=== PATIENT | male | born 1960 | race American Indian/Alaskan Native ===

== ENCOUNTER 2021-06-19 22:31 | Emergency (ER) | payer SELFPAY ==
--- NOTE | 2021-06-19 22:42 | Emergency Department Report ---
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 Patient brought to the emergency room via EMS from home for evaluation of epigastric pain that radiated to his back. Patient stated that pain started yesterday. Patient stated that he has been drinking alcohol for the last few days. Patient denied any fever or chills. No diarrhea. Patient denied any chest pain or shortness of breath. MD Complaint: abdominal pain -: days(s) Location: epigastric Radiation: back Severity scale (0 -10): 8 Quality: sharp Consistency: constant Associated Symptoms: nausea, vomiting - Related Data Allergies Allergy/AdvReac Type Severity Reaction Status Date / Time No Known Allergies Allergy Verified 06/19/21 22:47 ED Review of Systems ROS: Stated complaint: ABD PAIN Other details as noted in HPI Comment: All other systems reviewed and negative Constitutional: denies: chills, fever Respiratory: denies: cough, shortness of breath Cardiovascular: denies: chest pain, palpitations Gastrointestinal: abdominal pain, nausea, vomiting. denies: diarrhea, constipation, hematemesis, melena, hematochezia Musculoskeletal: back pain Neurological: denies: headache, weakness, numbness, paresthesias, confusion ED Physical Exam - General General appearance: alert, in no apparent distress - Head Head exam: Present: atraumatic, normal inspection - Eye Eye exam: Present: normal appearance - ENT ENT exam: Present: mucous membranes dry - Neck Neck exam: Present: normal inspection, full ROM. Absent: tenderness, meningismus - Respiratory Respiratory exam: Present: normal lung sounds bilaterally - Cardiovascular Cardiovascular Exam: Present: regular rate, normal rhythm, normal heart sounds - GI/Abdominal GI/Abdominal exam: Present: soft, tenderness, normal bowel sounds. Absent: distended, guarding, rebound, rigid, organomegaly, mass, bruit, pulsatile mass, hernia - Extremities Exam Extremities exam: Present: normal inspection, full ROM, normal capillary refill. Absent: tenderness, pedal edema, joint swelling, calf tenderness - Back Exam Back exam: Present: normal inspection, full ROM. Absent: CVA tenderness (R), CVA tenderness (L) - Neurological Exam Neurological exam: Present: alert, oriented X3, CN II-XII intact, normal gait, reflexes normal. 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 Patient brought to the emergency room via EMS from home for evaluation of epigastric pain that radiated to his back. Patient stated that pain started yesterday. Patient stated that he has been drinking alcohol for the last few days. Patient denied any fever or chills. No diarrhea. Patient denied any chest pain or shortness of breath. Patient received morphine, Zofran and fluids. Patient stated that he is feeling much better labs reviewed and showed elevated lipase. CT abdomen pelvis showed acute pancreatitis. Patient given prescription for pain and vomiting and advised to follow-up with his primary doctor in the next 2 to 3 days and to return to the ER if he develop any new symptoms. Critical care attestation.: If time is entered above; I have spent that time in minutes in the direct care of this critically ill patient, excluding procedure time. ED Disposition Clinical Impression: Acute abdominal pain, Acute pancreatitis Disposition: 01 HOME / SELF CARE / HOMELESS Is pt being admited?: No Condition: Stable Instructions: Acute Pancreatitis, [id number], Abdominal Pain, Adult, [id number] Referrals: PRIMARY CARE, [Referring] - 3-5 Days
[2021-06-19] MEDS: MORPHINE 4 MG/1 ML INJ IV ONE ×2 (23:01→23:29)
[2021-06-19] MEDS: SODIUM CHLORIDE 0.9% 1000 ML 1,000 ML IV ONE ×2 (23:02→23:29)
[2021-06-19] MEDS: ONDANSETRON 4 MG/2 ML INJ IV ONE ×2 (23:02→23:29)
[2021-06-19 23:22] LABS: Basophils % (Auto) 0.8 % (0.0-1.8); Eosinophils # (Auto) 0.1 K/mm3 (0.0-0.4); Eosinophils % (Auto) 2.2 % (0.0-4.3); Hematocrit 36.1 % (35.5-45.6); Hemoglobin 12.5 gm/dl (11.8-15.2); Lymphocytes # (Auto) 1.6 K/mm3 (1.2-5.4); Lymphocytes % (Auto) 39.5 % (13.4-35.0); Mean Corpuscular HGB Conc 35 % (32-34); Mean Corpuscular Volume 97 fl (84-94); Monocytes # (Auto) 0.4 K/mm3 (0.0-0.8); Monocytes % (Auto) 9.4 % (0.0-7.3); Platelet Count 103 K/mm3 (140-440); Red Blood Count 3.73 M/mm3 (3.65-5.03); Red Cell Distribution Width 14.9 % (13.2-15.2)
[2021-06-19 23:26] LABS: BUN/Creatinine Ratio 18; Blood Urea Nitrogen 16 mg/dL (9-20); Calcium 9.4 mg/dL (8.4-10.2); Hemolysis Index 1
[2021-06-19 23:29] LABS: Alanine Aminotransferase 41 units/L (7-56); Albumin 4.4 g/dL (3.9-5); Bilirubin,Direct 0.2 mg/dL (0-0.2)
--- NOTE | 2021-06-20 04:16 | Cat Scan Report ---
CT ABDOMEN AND PELVIS WITH IV CONTRAST INDICATION: Epigastric abdominal pain, Hx of Pancreatitis. COMPARISON: None available. TECHNIQUE: Axial CT images were obtained through the abdomen and pelvis after [address] scans at this location are performed using CT dose reduction for ALARA by means of automated exposure control. FINDINGS -- ABDOMEN: Lung Bases: No acute abnormality. Liver: Fatty liver. Gallbladder: Normal. Bile Ducts: Normal. Pancreas: Mildly edematous with extensive atrophy and dystrophic calcification involving much of the head and body of the pancreas.. Mild prominence of the main pancreatic duct. Spleen: Calcified granulomas.. Adrenals: Normal. Right Kidney and Proximal Ureter: Nonobstructive right-sided nephrolithiasis.. Left Kidney and Proximal Ureter: Normal. Stomach and Bowel: Normal. Lymph Nodes: Extensive jose calcifications throughout much of the peripancreatic region, periaortic retroperitoneum of the mid abdomen. Aorta: No significant abnormality. IVC: Normal. Additional Findings: Small fat-containing periumbilical hernia.. FINDINGS -- PELVIS: Urinary Bladder and Distal Ureters: Normal. Reproductive Organs: No acute abnormality. Appendix: Not well identified. Bowel: No acute abnormality. Free Fluid: Minimal free pelvic fluid. Lymph Nodes: No significant adenopathy. Additional Findings: Mild diffuse anasarca. Skeletal System: No acute abnormality. IMPRESSION: 1. Findings suspicious for acute on chronic pancreatitis. 2. No evidence of peripancreatic fluid collection. 3. Prominent retroperitoneal jose calcifications near the pancreas as well as the sergio hepatis and periaortic retroperitoneum, nonspecific 4. Nonobstructive right-sided nephrolithiasis 5. Fatty liver. Signer Name: Abdirahman Holt MD Signed: 06/20/2021 4:11 AM Workstation Name: [id number]
[2021-06-20 04:55] VITALS: BP 177/98
[2021-06-20 05:24] LABS: Bilirubin,Urine NEG (Negative); Blood,Urine SM (Negative); Color,Urine Yellow (Yellow); Mucus,Urine FEW /HPF; Protein,Urine <15 mg/dL mg/dL (Negative)
== END 2021-06-20 04:54 | disposition home or self-care (01) ==
LOC: ED 22:31
DX: K85.90 Acute pancreatitis without necrosis or infection, unspecified (principal)
CPT/HCPCS: 36415; 74177; 80048; 80076; 81001; 83690; 84484; 85025; 96361; 96374; 96375; 99284; J2270; J2405; J7030; Q9967

== ENCOUNTER 2022-01-26 16:39 | Inpatient (IN) | payer SELFPAY ==
[2022-01-27] MEDS ORDERED: ONDANSETRON 4 MG/2 ML INJ IV ONE (00:52)
[2022-01-27] MEDS ORDERED: MORPHINE 4 MG/1 ML INJ IV ONE (00:52)
--- NOTE | 2022-01-27 00:56 | Emergency Department Report ---
ED General Adult HPI - General Chief complaint: Abdominal Pain Stated complaint: ABD PAIN/N/V Time Seen by Provider: 01/27/22 00:49 Source: EMS Mode of arrival: Stretcher Limitations: No Limitations - History of Present Illness Initial comments: Patient presents with complaints of upper abdominal pain, sharp, non radiating, 10/10, not worsened or relieved by anything. Endorses nausea, non bloody, non bilious vomiting. Last BM was today and formed. Endorses flatulence. Denies dysuria, frequency, urgency. Severity scale (0 -10): 0 - Related Data Previous Rx's Medication Instructions Recorded Last Taken Type Ondansetron [Zofran Odt] 4 mg PO Q8HR PRN #14 tab.rapdis 06/20/21 Unknown Rx traMADoL [Ultram] 50 mg PO Q6HR PRN #14 tablet 06/20/21 Unknown Rx Allergies Allergy/AdvReac Type Severity Reaction Status Date / Time No Known Allergies Allergy Verified 06/19/21 22:47 ED Review of Systems ROS: Stated complaint: ABD PAIN/N/V Other details as noted in HPI Comment: All other systems reviewed and negative Constitutional: denies: chills, fever ED Past Medical Hx - Past Medical History Previous Medical History?: No Additional medical history: pancreatitis - Medications Home Medications: Home Medications Medication Instructions Recorded Confirmed Last Taken Type Ondansetron [Zofran Odt] 4 mg PO Q8HR PRN #14 tab.rapdis 06/20/21 Unknown Rx traMADoL [Ultram] 50 mg PO Q6HR PRN #14 tablet 06/20/21 Unknown Rx ED Physical Exam - General Limitations: No Limitations General appearance: alert, in no apparent distress - Head Head exam: Present: atraumatic, normocephalic - Eye Eye exam: Present: PERRL, EOMI - ENT ENT exam: Present: mucous membranes moist, other (airway patent) - Neck Neck exam: Present: other (supple; no JVD) - Respiratory Respiratory exam: Present: other (good air entry, nml I:E, CTAB, no use of JENNY) - Cardiovascular Cardiovascular Exam: Present: regular rate. Absent: rubs, gallop - GI/Abdominal GI/Abdominal exam: Present: other (soft, tender to palpation in LUQ, epigastric region and RUQ; no rebound tenderness or involuntary guarding) - Extremities Exam Extremities exam: Present: full ROM. Absent: tenderness - Back Exam Back exam: Present: full ROM. Absent: CVA tenderness (R), CVA tenderness (L) - Neurological Exam Neurological exam: Present: alert, oriented X3, CN II-XII intact. Absent: motor sensory deficit - Skin Skin exam: Present: warm, normal color ED Course Vital Signs 01/26/22 16:50 Temperature 98.7 F Pulse Rate 68 Respiratory 16 Rate Blood Pressure 162/77 [Left] O2 Sat by Pulse 100 Oximetry ED Medical Decision Making - Lab Data Result diagrams: 01/27/22 00:59 01/27/22 00:59 Laboratory Tests 01/27/22 01/27/22 01/27/22 00:59 00:59 Unknown WBC 4.0 L RBC 3.76 Hgb 12.9 Hct 37.5 MCV 100 H MCH 34 H MCHC 34 RDW 13.6 Plt Count 93 L Lymph % (Auto) 26.5 [place] % (Auto) 9.9 H Eos % (Auto) 1.0 Baso % (Auto) 0.4 Lymph # (Auto) 1.1 L [place] # (Auto) 0.4 Eos # (Auto) 0.0 Baso # (Auto) 0.0 Seg Neutrophils % 62.2 Seg Neutrophils # 2.5 Sodium 130 L Potassium 4.1 Chloride 91.0 L Carbon Dioxide 27 Anion Gap 16 BUN 8 L Creatinine 0.6 L Estimated GFR > 60 BUN/Creatinine Ratio 13 Glucose 97 Calcium 9.6 Total Bilirubin 1.00 AST 65 H ALT 42 Alkaline Phosphatase 104 Total Protein 8.1 Albumin 4.4 Albumin/Globulin Ratio 1.2 Lipase 122 H Urine Color Yellow Urine Turbidity Clear Urine pH 5.0 Ur Specific [place] 1.026 Urine Protein 30 mg/dl Urine Glucose (UA) Neg Urine Ketones 20 Urine Blood Mod Urine Nitrite Neg Urine Bilirubin Neg Urine Urobilinogen 2.0 Ur Leukocyte Esterase Neg Urine WBC (Auto) 2.0 Urine RBC (Auto) 15.0 Hyaline Casts 1 Urine Mucus 3+ CT abd/pelvis: acute on chronic pancreatitis - Medical Decision Making Received morphine 4 mg IV x 1, zofran 4 mg IV x 1, NS 1L bolus IV x 1 Critical care attestation.: If time is entered above; I have spent that time in minutes in the direct care of this critically ill patient, excluding procedure time. ED Disposition Clinical Impression: Acute pancreatitis Disposition: 09 ADMITTED INPATIENT Is pt being admited?: Yes Does the pt Need Aspirin: No Condition: Stable Time of Disposition: 03:16 (Patient admitted to Dr. Pollard. Sign out was given by me to the admitting physician. )
[2022-01-27 01:11] LABS: Basophils % (Auto) 0.4 % (0.0-1.8); Hematocrit 37.5 % (35.5-45.6); Hemoglobin 12.9 gm/dl (11.8-15.2); Lymphocytes # (Auto) 1.1 K/mm3 (1.2-5.4); Lymphocytes % (Auto) 26.5 % (13.4-35.0); Mean Corpuscular HGB Conc 34 % (32-34); Mean Corpuscular Volume 100 fl (84-94); Monocytes # (Auto) 0.4 K/mm3 (0.0-0.8); Monocytes % (Auto) 9.9 % (0.0-7.3); Red Blood Count 3.76 M/mm3 (3.65-5.03); Red Cell Distribution Width 13.6 % (13.2-15.2)
[2022-01-27 01:16] LABS: Platelet Count 93 K/mm3 (140-440)
[2022-01-27 01:28] LABS: Alanine Aminotransferase 42 units/L (7-56); Albumin 4.4 g/dL (3.9-5); Blood Urea Nitrogen 8 mg/dL (9-20); Calcium 9.6 mg/dL (8.4-10.2); Hemolysis Index 8
[2022-01-27 01:33] LABS: BUN/Creatinine Ratio 13
[2022-01-27 01:35] LABS: Bilirubin,Urine NEG (Negative); Blood,Urine MOD (Negative); Color,Urine Yellow (Yellow); Hyaline Casts,Urine 1 /LPF; Mucus,Urine 3+ /HPF
--- NOTE | 2022-01-27 02:22 | Cat Scan Report ---
CT abdomen pelvis w con INDICATION / CLINICAL INFORMATION: abd pain. TECHNIQUE: Axial CT images were obtained through the abdomen and pelvis after 100 cc of Omnipaque [address] scans at this location are performed using CT dose reduction for ALARA by means of automated exposure control. COMPARISON: 06/20/2021 FINDINGS: LOWER CHEST: No significant abnormality LIVER: Enlarged, fatty liver. GALLBLADDER/BILIARY TREE: No significant abnormality PANCREAS: There is acute inflammation of the distal pancreatic body and tail. Chronic calcifications are present within the pancreas, compatible with chronic pancreatitis. No pancreatic duct dilatation. No peripancreatic collection. The pancreas enhances homogeneously. SPLEEN: No significant abnormality ADRENALS: No significant abnormality RIGHT KIDNEY / URETER: Tiny renal cysts and 5 mm nonobstructive right renal stone. No hydronephrosis. LEFT KIDNEY / URETER: 2 mm nonobstructive left renal stone. No hydronephrosis. URINARY BLADDER: Bladder is partially decompressed, though grossly unremarkable. REPRODUCTIVE ORGANS: No significant abnormality STOMACH / BOWEL: Small bowel is normal in caliber. Moderate amount of stool in the colon. There is no evidence of localized bowel inflammation or obstruction. Appendix is not seen. LYMPH NODES: No new or increasing adenopathy. VASCULATURE: No significant abnormality. OTHER: No free air, free fluid, or focal fluid collection is identified. Fat-containing umbilical her kj without complication. SKELETAL SYSTEM: Left femoral head avascular necrosis. Suggestion of early avascular necrosis of the right femoral head. No evidence of subchondral collapse. No acute osseous findings. IMPRESSION: 1. Acute on chronic pancreatitis involving the distal pancreatic body and tail. No evidence of peripa ncreatic fluid collection or necrosis. 2. No other acute findings. Other stable chronic and incidental findings as above. Signer Name: Perez Brooks MD Signed: 01/27/2022 2:18 AM Workstation Name: [id number]
[2022-01-27] MEDS ORDERED: SODIUM CHLORIDE 0.9% 1000 ML 1,000 ML IV ONE (03:14)
[2022-01-27] MEDS ORDERED: ONDANSETRON 4 MG/2 ML INJ IV PRN (04:24)
[2022-01-27] MEDS ORDERED: MORPHINE 4 MG/1 ML INJ IV PRN (04:24)
[2022-01-27] MEDS ORDERED: MAGNESIUM HYDROXIDE (MOM) ORAL LIQD UDC PO PRN (04:24)
[2022-01-27] MEDS ORDERED: MORPHINE 2 MG/1 ML INJ IV PRN (04:24)
[2022-01-27] MEDS ORDERED: ACETAMINOPHEN 325 MG TAB PO PRN (04:24)
--- NOTE | 2022-01-27 04:32 | History and Physical Report ---
History of Present Illness Date of examination: 01/27/22 Date of admission: 01/27/2022 Chief complaint: Abdominal pain History of present illness: 61-year-old woman -[place] male with no significant past medical history except for alcohol abuse presenting to the emergency room today complaining of abdominal pain. Abdominal pain is said to be generalized. No no relieving or exacerbating factor. He has been having associated nausea and vomiting. Denies any fever or chills, no chest pain or shortness of breath, no headache or dizziness and no diaphoresis. Patient admits to having this type of symptoms in the past. He also indicates the was drinking alcohol just a few days ago. He has been trying to cut back on his alcohol consumption. He denies any illicit drug use. Denies any sick contacts and no recent travel. Denies contact with anyone with COVID-19. Patient has been fully vaccinated against COVID-19. Work-up in the emergency room today, labs significant for lipase level of 122. CT of the abdomen pelvis reveals acute on chronic pancreatitis involving the distal pancreatic body and tail . No evidence of peripancreatic fluid colle ction or necrosis. Patient has been started on IV fluid and analgesic medications. Past History Past Medical History: other (Pancreatitis) Past Surgical History: No surgical history Social history: alcohol abuse Family history: no significant family history Medications and Allergies Allergies Allergy/AdvReac Type Severity Reaction Status Date / Time No Known Allergies Allergy Verified 06/19/21 22:47 Home Medications Medication Instructions Recorded Confirmed Last Taken Type Ondansetron [Zofran Odt] 4 mg PO Q8HR PRN #14 tab.rapdis 06/20/21 Unknown Rx traMADoL [Ultram] 50 mg PO Q6HR PRN #14 tablet 06/20/21 Unknown Rx Active Meds: Active Medications Acetaminophen (Acetaminophen 325 Mg Tab) 650 mg PO Q4H PRN PRN Reason: Pain MILD(1-3)/Fever >100.5/[place]O Sodium Chloride (Nacl 0.9% 1000 Ml) 1,000 mls @ 150 mls/hr IV DIRECT SAGAR Magnesium Hydroxide (Magnesium Hydroxide (Mom) Oral Liqd Udc) 30 ml PO Q4H PRN PRN Reason: Constipation Morphine Sulfate (Morphine 2 Mg/1 Ml Inj) 2 mg IV Q4H PRN PRN Reason: Pain, Moderate (4-6) Morphine Sulfate (Morphine 4 Mg/1 Ml Inj) 4 mg IV Q4H PRN PRN Reason: Pain , Severe (7-10) Ondansetron HCl (Ondansetron 4 Mg/2 Ml Inj) 4 mg IV Q8H PRN PRN Reason: Nausea And Vomiting Sodium Chloride (Sodium Chloride 0.9% 10 Ml Flush Syringe) 10 ml IV BID SAGAR Sodium Chloride (Sodium Chloride 0.9% 10 Ml Flush Syringe) 10 ml IV PRN PRN PRN Reason: LINE FLUSH Review of Systems Constitutional: no fever, no chills Ears, nose, mouth and throat: no nasal congestion, no sore throat Respiratory: no cough, no shortness of breath, no wheezing Gastrointestinal: abdominal pain, nausea, vomiting, no diarrhea Genitourinary Male: no dysuria, no hematuria, no nocturia Musculoskeletal: no neck pain, no low back pain Integumentary: no rash, no pruritis Neurological: no headaches, no confusion Psychiatric: no anxiety, no depression Endocrine: no polyphagia, no polydipsia, no polyuria, no nocturia Exam - Constitutional Vitals: Temp Pulse Resp BP Pulse Ox 98.7 F 68 16 162/77 100 01/26/22 16:50 01/26/22 16:50 01/26/22 16:50 01/26/22 16:50 01/26/22 16:50 General appearance: Present: no acute distress, well-nourished - EENT Eyes: Present: PERRL, EOM intact. Absent: scleral icterus ENT: hearing intact, clear oral mucosa, dentition normal - Neck Neck: Present: supple, normal ROM - Respiratory Respiratory effort: normal Respiratory: bilateral: CTA - Cardiovascular Rhythm: regular Heart Sounds: Present: S1 & S2. Absent: gallop, systolic murmur, diastolic murmur, rub, click - Extremities Extremities: no ischemia, pulses intact, pulses symmetrical, No edema, normal te mperature, normal color, Full ROM Peripheral Pulses: within normal limits - Abdominal General gastrointestinal: Present: soft, tender (Mild diffuse tenderness, no guarding no rebound tenderness), non-distended, normal bowel sounds. Absent: mass - Integumentary Integumentary: Present: clear, warm, dry, normal turgor. Absent: rash - Musculoskeletal Musculoskeletal: strength equal bilaterally - Psychiatric Psychiatric: appropriate mood/affect, intact judgment & insight, memory intact, cooperative - Neurologic Neurologic: CNII-XII intact, no focal deficits, moves all extremities Results - Labs CBC & Chem 7: 01/27/22 00:59 01/27/22 00:59 Labs: Abnormal lab results 01/27/22 01/27/22 Range/Units 00:59 00:59 WBC 4.0 L (4.5-11.0) K/mm3 MCV 100 H (84-94) fl MCH 34 H (28-32) pg Plt Count 93 L (140-440) K/mm3 [place] % (Auto) 9.9 H (0.0-7.3) % Lymph # (Auto) 1.1 L (1.2-5.4) K/mm3 Sodium 130 L (137-145) mmol/L Chloride 91.0 L (98-107) mmol/L BUN 8 L (9-20) mg/dL Creatinine 0.6 L (0.8-1.3) mg/dL AST 65 H (5-40) units/L Lipase 122 H (13-60) units/L Assessment and Plan - Patient Problems (1) Acute pancreatitis Current Visit: Yes Status: Acute Plan to address problem: Patient made NPO. He has been placed on IV fluid and analgesic medications. (2) Alcohol abuse Current Visit: Yes Status: Acute Plan to address problem: Patient counseled on quitting alcohol abuse. We will also monitor for alcohol withdrawal symptoms. (3) DVT prophylaxis Current Visit: Yes Status: Acute Plan to address problem: Patient placed on subcutaneous heparin. (4) Full code status Current Visit: Yes Status: Acute Plan to address problem: Patient is full code.
[2022-01-27] MEDS: HEPARIN 5,000 UNIT/1 ML VIAL SUB-Q SCH ×3 (05:00→22:15)
[2022-01-27] MEDS: SODIUM CHLORIDE 0.9% 1000 ML 1,000 ML IV SCH ×2 (10:13→16:58)
--- NOTE | 2022-01-27 11:12 | Progress Note ---
Assessment and Plan Assessment and plan: 61-year-old -[place] male with no significant past medical history except for alcohol abuse presented to the emergency room complaining of abdominal pain. Labs significant for lipase level of 122. CT of the abdomen pelvis reveals acute on chronic pancreatitis involving the distal pancreatic shaun dy and tail . No evidence of peripancreatic fluid collection or necrosis. The patient was admitted with diagnosis below: Acute on chronic pancreatitis EtOH abuse 01/27/2022. Continue CINJ protocol and supportive care. Patient's diet will be advanced with clear liquids today and as tolerated. Continue IV fluid hydration and pain control History Interval history: No new issues overnight. Hospitalist Physical - Constitutional Vitals: Temp Pulse Resp BP Pulse Ox 98.7 F 66 20 134/78 100 01/27/22 08:45 01/27/22 08:45 01/27/22 08:45 01/27/22 08:45 01/27/22 08:45 General appearance: Present: no acute distress, well-nourished - EENT Eyes: Present: PERRL, EOM intact ENT: hearing intact, clear oral mucosa, dentition normal - Neck Neck: Present: supple, normal ROM - Respiratory Respiratory effort: normal Respiratory: bilateral: CTA - Cardiovascular Rhythm: regular Heart Sounds: Present: S1 & S2. Absent: gallop, rub - Extremities Extremities: no ischemia, No edema, Full ROM - Abdominal General gastrointestinal: soft, non-tender, non-distended, normal bowel sounds - Integumentary Integumentary: Present: clear, warm, dry - Neurologic Neurologic: CNII-XII intact, moves all extremities Results - Labs CBC & Chem 7: 01/27/22 00:59 01/27/22 00:59 Labs: Laboratory Last Values WBC 4.0 K/mm3 (4.5-11.0) L 01/27/22 00:59 RBC 3.76 M/mm3 (3.65-5.03) 01/27/22 00:59 Hgb 12.9 gm/dl (11.8-15.2) 01/27/22 00:59 Hct 37.5 % (35.5-45.6) 01/27/22 00:59 MCV 100 fl (84-94) H 01/27/22 00:59 MCH 34 pg (28-32) H 01/27/22 00:59 MCHC 34 % (32-34) 01/27/22 00:59 RDW 13.6 % (13.2-15.2) 01/27/22 00:59 Plt Count 93 K/mm3 (140-440) L 01/27/22 00:59 Lymph % (Auto) 26.5 % (13.4-35.0) 01/27/22 00:59 [place] % (Auto) 9.9 % (0.0-7.3) H 01/27/22 00:59 Eos % (Auto) 1.0 % (0.0-4.3) 01/27/22 00:59 Baso % (Auto) 0.4 % (0.0-1.8) 01/27/22 00:59 Lymph # (Auto) 1.1 K/mm3 (1.2-5.4) L 01/27/22 00:59 [place] # (Auto) 0.4 K/mm3 (0.0-0.8) 01/27/22 00:59 Eos # (Auto) 0.0 K/mm3 (0.0-0.4) 01/27/22 00:59 Baso # (Auto) 0.0 K/mm3 (0.0-0.1) 01/27/22 00:59 Seg Neutrophils % 62.2 % (40.0-70.0) 01/27/22 00:59 Seg Neutrophils # 2.5 K/mm3 (1.8-7.7) 01/27/22 00:59 Sodium 130 mmol/L (137-145) L 01/27/22 00:59 Potassium 4.1 mmol/L (3.6-5.0) 01/27/22 00:59 Chloride 91.0 mmol/L (98-107) L 01/27/22 00:59 Carbon Dioxide 27 mmol/L (22-30) 01/27/22 00:59 Anion Gap 16 mmol/L 01/27/22 00:59 BUN 8 mg/dL (9-20) L 01/27/22 00:59 Creatinine 0.6 mg/dL (0.8-1.3) L 01/27/22 00:59 Estimated GFR > 60 ml/min 01/27/22 00:59 BUN/Creatinine Ratio 13 % 01/27/22 00:59 Glucose 97 mg/dL (75-100) 01/27/22 00:59 Calcium 9.6 mg/dL (8.4-10.2) 01/27/22 00:59 Total Bilirubin 1.00 mg/dL (0.1-1.2) 01/27/22 00:59 AST 65 units/L (5-40) H 01/27/22 00:59 ALT 42 units/L (7-56) 01/27/22 00:59 Alkaline Phosphatase 104 units/L (35-129) 01/27/22 00:59 Total Protein 8.1 g/dL (6.3-8.2) 01/27/22 00:59 Albumin 4.4 g/dL (3.9-5) 01/27/22 00:59 Albumin/Globulin Ratio 1.2 % 01/27/22 00:59 Lipase 122 units/L (13-60) H 01/27/22 00:59 Urine Color Yellow (Yellow) 01/27/22 Unknown Urine Turbidity Clear (Clear) 01/27/22 Unknown Urine pH 5.0 (5.0-7.0) 01/27/22 Unknown Ur Specific [place] 1.026 (1.003-1.030) 01/27/22 Unknown Urine Protein 30 mg/dl mg/dL (Negative) 01/27/22 Unknown Urine Glucose (UA) Neg mg/dL (Negative) 01/27/22 Unknown Urine Ketones 20 mg/dL (Negative) 01/27/22 Unknown Urine Blood Mod (Negative) 01/27/22 Unknown Urine Nitrite Neg (Negative) 01/27/22 Unknown Urine Bilirubin Neg (Negative) 01/27/22 Unknown Urine Urobilinogen 2.0 mg/dL (<2.0) 01/27/22 Unknown Ur Leukocyte Esterase Neg (Negative) 01/27/22 Unknown Urine WBC (Auto) 2.0 /HPF (0.0-6.0) 01/27/22 Unknown Urine RBC (Auto) 15.0 /HPF (0.0-6.0) 01/27/22 Unknown Hyaline Casts 1 /LPF 01/27/22 Unknown Urine Mucus 3+ /HPF 01/27/22 Unknown Active Medications - Current Medications Current Medications: Generic Name Dose Route Start Last Admin Trade Name Freq PRN Reason Stop Dose Admin Acetaminophen 650 mg 01/27/22 04:24 Acetaminophen 325 Mg Tab PO Q4H PRN Pain MILD(1-3)/Fever >100.5/[place]O Heparin Sodium (Porcine) 5,000 unit 01/27/22 06:00 01/27/22 05:00 Heparin 5,000 Unit/1 Ml Vial SUB-Q 5,000 unit Q8HR SAGAR Administration Sodium Chloride 1,000 mls @ 150 mls/hr 01/27/22 04:30 01/27/22 10:13 Nacl 0.9% 1000 Ml IV 150 mls/hr DIRECT SAGAR Administration Magnesium Hydroxide 30 ml 01/27/22 04:24 Magnesium Hydroxide (Mom) Oral Liqd Udc PO Q4H PRN Constipation Morphine Sulfate 2 mg 01/27/22 04:24 Morphine 2 Mg/1 Ml Inj IV Q4H PRN Pain, Moderate (4-6) Morphine Sulfate 4 mg 01/27/22 04:24 Morphine 4 Mg/1 Ml Inj IV Q4H PRN Pain , Severe (7-10) Ondansetron HCl 4 mg 01/27/22 04:24 Ondansetron 4 Mg/2 Ml Inj IV Q8H PRN Nausea And Vomiting Sodium Chloride 10 ml 01/27/22 10:00 01/27/22 10:13 Sodium Chloride 0.9% 10 Ml Flush Syringe IV 10 ml BID SAGAR Administration Sodium Chloride 10 ml 01/27/22 04:24 Sodium Chloride 0.9% 10 Ml Flush Syringe IV PRN PRN LINE FLUSH
[2022-01-28] MEDS: SODIUM CHLORIDE 0.9% 1000 ML 1,000 ML IV SCH ×3 (04:11→22:11)
[2022-01-28] MEDS: HEPARIN 5,000 UNIT/1 ML VIAL SUB-Q SCH ×3 (06:12→22:10)
--- NOTE | 2022-01-28 11:29 | Progress Note ---
Assessment and Plan Assessment and plan: 61-year-old -[place]ym[place] male with no significant past medical history except for alcohol abuse presented to the emergency room complaining of abdominal pain. Labs significant for lipase level of 122. CT of the abdomen pelvis reveals acute on chronic pancreatitis involving the distal pancreatic shaun dy and tail . No evidence of peripancreatic fluid collection or necrosis. The patient was admitted with diagnosis below: Acute on chronic pancreatitis EtOH abuse 01/27/2022. Continue CIIL protocol and supportive care. Patient's diet will be advanced with clear liquids today and as tolerated. Continue IV fluid hydration and pain control 01/28/2022. Patient complains of still moderate abdominal pain with only slight improvement. However, patient is tolerating clear liquid diet.. We will recheck lipase levels. Advance diet as tolerated. Continue supportive measures with IV fluid hydration, antiemetic and pain control. Anticipate discharge later on today or in a.m. History Interval history: No new issues overnight. Hospitalist Physical - Constitutional Vitals: Temp Pulse Resp BP Pulse Ox 98.9 F 57 L 18 142/78 100 01/28/22 06:04 01/28/22 06:04 01/28/22 06:04 01/28/22 06:04 01/28/22 07:19 General appearance: Present: no acute distress, well-nourished - EENT Eyes: Present: PERRL, EOM intact ENT: hearing intact, clear oral mucosa, dentition normal - Neck Neck: Present: supple, normal ROM - Respiratory Respiratory effort: normal Respiratory: bilateral: CTA - Cardiovascular Rhythm: regular Heart Sounds: Present: S1 & S2. Absent: gallop, rub - Extremities Extremities: no ischemia, No edema, Full ROM - Abdominal General gastrointestinal: soft, non-tender, non-distended, normal bowel sounds - Integumentary Integumentary: Present: clear, warm, dry - Neurologic Neurologic: CNII-XII intact, moves all extremities Results - Labs CBC & Chem 7: 01/27/22 00:59 01/27/22 00:59 Labs: Laboratory Last Values WBC 4.0 K/mm3 (4.5-11.0) L 01/27/22 00:59 RBC 3.76 M/mm3 (3.65-5.03) 01/27/22 00:59 Hgb 12.9 gm/dl (11.8-15.2) 01/27/22 00:59 Hct 37.5 % (35.5-45.6) 01/27/22 00:59 MCV 100 fl (84-94) H 01/27/22 00:59 MCH 34 pg (28-32) H 01/27/22 00:59 MCHC 34 % (32-34) 01/27/22 00:59 RDW 13.6 % (13.2-15.2) 01/27/22 00:59 Plt Count 93 K/mm3 (140-440) L 01/27/22 00:59 Lymph % (Auto) 26.5 % (13.4-35.0) 01/27/22 00:59 [place] % (Auto) 9.9 % (0.0-7.3) H 01/27/22 00:59 Eos % (Auto) 1.0 % (0.0-4.3) 01/27/22 00:59 Baso % (Auto) 0.4 % (0.0-1.8) 01/27/22 00:59 Lymph # (Auto) 1.1 K/mm3 (1.2-5.4) L 01/27/22 00:59 [place] # (Auto) 0.4 K/mm3 (0.0-0.8) 01/27/22 00:59 Eos # (Auto) 0.0 K/mm3 (0.0-0.4) 01/27/22 00:59 Baso # (Auto) 0.0 K/mm3 (0.0-0.1) 01/27/22 00:59 Seg Neutrophils % 62.2 % (40.0-70.0) 01/27/22 00:59 Seg Neutrophils # 2.5 K/mm3 (1.8-7.7) 01/27/22 00:59 Sodium 130 mmol/L (137-145) L 01/27/22 00:59 Potassium 4.1 mmol/L (3.6-5.0) 01/27/22 00:59 Chloride 91.0 mmol/L (98-107) L 01/27/22 00:59 Carbon Dioxide 27 mmol/L (22-30) 01/27/22 00:59 Anion Gap 16 mmol/L 01/27/22 00:59 BUN 8 mg/dL (9-20) L 01/27/22 00:59 Creatinine 0.6 mg/dL (0.8-1.3) L 01/27/22 00:59 Estimated GFR > 60 ml/min 01/27/22 00:59 BUN/Creatinine Ratio 13 % 01/27/22 00:59 Glucose 97 mg/dL (75-100) 01/27/22 00:59 Calcium 9.6 mg/dL (8.4-10.2) 01/27/22 00:59 Total Bilirubin 1.00 mg/dL (0.1-1.2) 01/27/22 00:59 AST 65 units/L (5-40) H 01/27/22 00:59 ALT 42 units/L (7-56) 01/27/22 00:59 Alkaline Phosphatase 104 units/L (35-129) 01/27/22 00:59 Total Protein 8.1 g/dL (6.3-8.2) 01/27/22 00:59 Albumin 4.4 g/dL (3.9-5) 01/27/22 00:59 Albumin/Globulin Ratio 1.2 % 01/27/22 00:59 Lipase 122 units/L (13-60) H 01/27/22 00:59 Urine Color Yellow (Yellow) 01/27/22 Unknown Urine Turbidity Clear (Clear) 01/27/22 Unknown Urine pH 5.0 (5.0-7.0) 01/27/22 Unknown Ur Specific [place] 1.026 (1.003-1.030) 01/27/22 Unknown Urine Protein 30 mg/dl mg/dL (Negative) 01/27/22 Unknown Urine Glucose (UA) Neg mg/dL (Negative) 01/27/22 Unknown Urine Ketones 20 mg/dL (Negative) 01/27/22 Unknown Urine Blood Mod (Negative) 01/27/22 Unknown Urine Nitrite Neg (Negative) 01/27/22 Unknown Urine Bilirubin Neg (Negative) 01/27/22 Unknown Urine Urobilinogen 2.0 mg/dL (<2.0) 01/27/22 Unknown Ur Leukocyte Esterase Neg (Negative) 01/27/22 Unknown Urine WBC (Auto) 2.0 /HPF (0.0-6.0) 01/27/22 Unknown Urine RBC (Auto) 15.0 /HPF (0.0-6.0) 01/27/22 Unknown Hyaline Casts 1 /LPF 01/27/22 Unknown Urine Mucus 3+ /HPF 01/27/22 Unknown Ayala/IV: Voiding Method Urinal Active Medications - Current Medications Current Medications: Generic Name Dose Route Start Last Admin Trade Name Freq PRN Reason Stop Dose Admin Acetaminophen 650 mg 01/27/22 04:24 Acetaminophen 325 Mg Tab PO Q4H PRN Pain MILD(1-3)/Fever >100.5/MONTAÑO Heparin Sodium (Porcine) 5,000 unit 01/27/22 06:00 01/28/22 06:12 Heparin 5,000 Unit/1 Ml Vial SUB-Q 5,000 unit Q8HR SAGAR Administration Sodium Chloride 1,000 mls @ 150 mls/hr 01/27/22 04:30 01/28/22 04:11 Nacl 0.9% 1000 Ml IV 150 mls/hr DIRECT SAGAR Administration Magnesium Hydroxide 30 ml 01/27/22 04:24 Magnesium Hydroxide (Mom) Oral Liqd Udc PO Q4H PRN Constipation Morphine Sulfate 2 mg 01/27/22 04:24 Morphine 2 Mg/1 Ml Inj IV Q4H PRN Pain, Moderate (4-6) Morphine Sulfate 4 mg 01/27/22 04:24 Morphine 4 Mg/1 Ml Inj IV Q4H PRN Pain , Severe (7-10) Ondansetron HCl 4 mg 01/27/22 04:24 Ondansetron 4 Mg/2 Ml Inj IV Q8H PRN Nausea And Vomiting Sodium Chloride 10 ml 01/27/22 10:00 01/28/22 09:00 Sodium Chloride 0.9% 10 Ml Flush Syringe IV 10 ml BID SAGAR Administration Sodium Chloride 10 ml 01/27/22 04:24 Sodium Chloride 0.9% 10 Ml Flush Syringe IV PRN PRN LINE FLUSH Nutrition/Malnutrition Assess - Dietary Evaluation Nutrition/Malnutrition Findings: Nutrition Notes Start: 01/27/22 17:15 Freq: Status: Active Protocol: Document 01/27/22 17:15 BLANQUITA (Rec: 01/27/22 17:34 [id number]) Nutrition Notes 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 Current Diet Clear Liquids Diet (from D ). Labs/Tests 01/27: Na 130, Cl 91.0, BUN 8, Crea 0.6. Pertinent Medications 01/27: Nutritionally unremarkable. Height 5 ft 8 in Weight 61.235 kg [place] Body Weight (kg) 70.00 BMI 20.5 Intake Prior to Admission Good Weight change and time frame Pt states having, unintentionally, loss between 14 and 23 lb recently. Weight Status Appropriate Subjective/Other Information RD consult for risk of malnutrition assessment. Pt has been on NPO, will advance to PO diet at dinner, will assess PO intake of meals at F/U. Pt is on Room Air, O2 saturation @ 99%, according to Physical Assessment History notes. Pt has missing teeth, according to Physical Assessment History notes. Pt shows no signs of concern for risk of malnutrition at the time, according to Physical Assessment History notes. Percent of energy/protein needs met: Prescribed Clear Liquids Diet provides for energy/protein needs (590 Kcal/16 g) during LOS. Burn Absent Trauma Absent GI Symptoms Nausea,Vomiting,Other Food Allergy No Skin Integrity/Comment Assessment WNL. 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 Is patient on ventilator? No Is Patient Ambulatory and/or Out of Bed Yes REE-([facility]-ambulatory/OOB) [ 1802.905 [id number]] Calculation Used for Recommendations [facility] Additional Notes Protein: 0.8-1 g/Kg IBW; 56-70 g/day. Fluids: 1 ml/Kcal, or as per MD. Nutrition Intervention Change Diet Order: Start on Clear Liquids Diet, as tolerated, eventually, advance to Full Liquids Diet as tolerated. Goal #1 Adjust the dietary intervention to better serve Pt's needs and clinical conditions during LOS. Goal #2 Maintain body weight within +/ -3% of admission body weight during LOS. Follow-Up By: 01/30/22 Additional Comments Continue monitoring food tolerance, %PO intake of meals , and BM.
[2022-01-28 11:39] LABS: Basophils % (Auto) 0.5 % (0.0-1.8); Eosinophils # (Auto) 0.1 K/mm3 (0.0-0.4); Eosinophils % (Auto) 2.5 % (0.0-4.3); Hematocrit 34.6 % (35.5-45.6); Hemoglobin 11.2 gm/dl (11.8-15.2); Lymphocytes # (Auto) 0.9 K/mm3 (1.2-5.4); Lymphocytes % (Auto) 38.3 % (13.4-35.0); Mean Corpuscular HGB Conc 32 % (32-34); Mean Corpuscular Volume 103 fl (84-94); Monocytes # (Auto) 0.4 K/mm3 (0.0-0.8); Monocytes % (Auto) 14.5 % (0.0-7.3); Red Blood Count 3.37 M/mm3 (3.65-5.03); Red Cell Distribution Width 13.6 % (13.2-15.2)
[2022-01-28 11:48] LABS: Platelet Count 84 K/mm3 (140-440)
[2022-01-28 11:50] LABS: Blood Urea Nitrogen 6 mg/dL (9-20); Calcium 8.4 mg/dL (8.4-10.2); Hemolysis Index 3
[2022-01-28 11:54] LABS: BUN/Creatinine Ratio 9
[2022-01-29] MEDS: SODIUM CHLORIDE 0.9% 1000 ML 1,000 ML IV SCH ×2 (04:54→22:17)
[2022-01-29] MEDS: HEPARIN 5,000 UNIT/1 ML VIAL SUB-Q SCH ×3 (05:01→22:16)
[2022-01-29] MEDS ORDERED: hydrALAZINE 20 MG/1 ML INJ IV PRN (09:50)
--- NOTE | 2022-01-29 09:56 | Progress Note ---
Assessment and Plan Assessment and plan: 61-year-old -[place] male with no significant past medical history except for alcohol abuse presented to the emergency room complaining of abdominal pain. Labs significant for lipase level of 122. CT of the abdomen pelvis reveals acute on chronic pancreatitis involving the distal pancreatic bod y and tail . No evidence of peripancreatic fluid collection or necrosis. The patient was admitted with diagnosis below: Acute on chronic pancreatitis; Patient was n.p.o., started clear liquids advance as tolerated IV fluids and pain medications Trend lipase, consider GI evaluation inpatient versus outpatient EtOH abuse; Thiamine folic acid, closely monitor for any alcohol withdrawal symptoms CIID protocol as needed DVT prophylaxis; Lovenox subcu DC planning per case management Chronic alcohol use; Preventive counseling; +32 minutes Strongly advised to quit alcohol intake Counseled the importance of quitting alcohol Also advised alcohol rehabilitation Patient verbalized understanding Advance care planning; +30 minutes Patient's diagnosed discussed, patient prognosis explained, patient's testing reports informed the patient Smoking cessation counseling done, counseled and advised to quit alcohol intake Additional 30 minutes We will closely monitor the patient and adjust management as needed Plan of care reviewed with the patient, his nurse and the case management 01/27/2022. Continue CIWA protocol and supportive care. Patient's diet will be advanced with clear liquids today and as tolerated. Continue IV fluid hydration and pain control 01/28/2022. Patient complains of still moderate abdominal pain with only slight improvement. However, patient is tolerating clear liquid diet.. We will recheck lipase levels. Advance diet as tolerated. Continue supportive measures with IV fluid hydration, antiemetic and pain control. Anticipate discharge later on today or in a.m. 01/29/2022; counseling done, trend lipase levels, check electrolytes Continue supportive care, possible discharge tomorrow if stable History Interval history: I have seen and examined the patient at the bedside Patient's chart and medications reviewed Patient continues to have mild abdominal pain due to acute pancreatitis lipase levels 154 Advance the diet to GI soft as tolerated Vital signs reviewed Hospitalist Physical - Constitutional Vitals: Temp Pulse Resp BP Pulse Ox 98.5 F 60 17 127/77 100 01/28/22 21:27 01/28/22 21:27 01/28/22 22:00 01/28/22 21:27 01/29/22 06:58 General appearance: Present: no acute distress, well-nourished - EENT Eyes: Present: PERRL, EOM intact - Neck Neck: Present: supple, normal ROM - Respiratory Respiratory effort: normal Respiratory: bilateral: diminished, rhonchi, negative: rales, wheezing - Cardiovascular Rhythm: regular Heart Sounds: Present: S1 & S2 - Extremities Extremities: no ischemia, No edema - Abdominal General gastrointestinal: soft, non-tender, non-distended, normal bowel sounds - Integumentary Integumentary: Present: clear, warm - Psychiatric Psychiatric: appropriate mood/affect, cooperative - Neurologic Neurologic: CNII-XII intact, moves all extremities Results - Labs CBC & Chem 7: 01/28/22 10:51 01/28/22 10:51 Labs: Laboratory Last Values WBC 2.4 K/mm3 (4.5-11.0) L 01/28/22 10:51 RBC 3.37 M/mm3 (3.65-5.03) L 01/28/22 10:51 Hgb 11.2 gm/dl (11.8-15.2) L 01/28/22 10:51 Hct 34.6 % (35.5-45.6) L 01/28/22 10:51 MCV 103 fl (84-94) H 01/28/22 10:51 MCH 33 pg (28-32) H 01/28/22 10:51 MCHC 32 % (32-34) 01/28/22 10:51 RDW 13.6 % (13.2-15.2) 01/28/22 10:51 Plt Count 84 K/mm3 (140-440) L 01/28/22 10:51 Lymph % (Auto) 38.3 % (13.4-35.0) H 01/28/22 10:51 [place] % (Auto) 14.5 % (0.0-7.3) H 01/28/22 10:51 Eos % (Auto) 2.5 % (0.0-4.3) 01/28/22 10:51 Baso % (Auto) 0.5 % (0.0-1.8) 01/28/22 10:51 Lymph # (Auto) 0.9 K/mm3 (1.2-5.4) L 01/28/22 10:51 [place] # (Auto) 0.4 K/mm3 (0.0-0.8) 01/28/22 10:51 Eos # (Auto) 0.1 K/mm3 (0.0-0.4) 01/28/22 10:51 Baso # (Auto) 0.0 K/mm3 (0.0-0.1) 01/28/22 10:51 Seg Neutrophils % 44.2 % (40.0-70.0) 01/28/22 10:51 Seg Neutrophils # 1.1 K/mm3 (1.8-7.7) L 01/28/22 10:51 Sodium 136 mmol/L (137-145) L 01/28/22 10:51 Potassium 3.8 mmol/L (3.6-5.0) 01/28/22 10:51 Chloride 100.6 mmol/L (98-107) 01/28/22 10:51 Carbon Dioxide 27 mmol/L (22-30) 01/28/22 10:51 Anion Gap 12 mmol/L 01/28/22 10:51 BUN 6 mg/dL (9-20) L 01/28/22 10:51 Creatinine 0.7 mg/dL (0.8-1.3) L 01/28/22 10:51 Estimated GFR > 60 ml/min 01/28/22 10:51 BUN/Creatinine Ratio 9 % 01/28/22 10:51 Glucose 104 mg/dL (75-100) H 01/28/22 10:51 Calcium 8.4 mg/dL (8.4-10.2) 01/28/22 10:51 Total Bilirubin 1.00 mg/dL (0.1-1.2) 01/27/22 00:59 AST 65 units/L (5-40) H 01/27/22 00:59 ALT 42 units/L (7-56) 01/27/22 00:59 Alkaline Phosphatase 104 units/L (35-129) 01/27/22 00:59 Total Protein 8.1 g/dL (6.3-8.2) 01/27/22 00:59 Albumin 4.4 g/dL (3.9-5) 01/27/22 00:59 Albumin/Globulin Ratio 1.2 % 01/27/22 00:59 Lipase 154 units/L (13-60) H 01/28/22 10:51 Urine Color Yellow (Yellow) 01/27/22 Unknown Urine Turbidity Clear (Clear) 01/27/22 Unknown Urine pH 5.0 (5.0-7.0) 01/27/22 Unknown Ur Specific [place] 1.026 (1.003-1.030) 01/27/22 Unknown Urine Protein 30 mg/dl mg/dL (Negative) 01/27/22 Unknown Urine Glucose (UA) Neg mg/dL (Negative) 01/27/22 Unknown Urine Ketones 20 mg/dL (Negative) 01/27/22 Unknown Urine Blood Mod (Negative) 01/27/22 Unknown Urine Nitrite Neg (Negative) 01/27/22 Unknown Urine Bilirubin Neg (Negative) 01/27/22 Unknown Urine Urobilinogen 2.0 mg/dL (<2.0) 01/27/22 Unknown Ur Leukocyte Esterase Neg (Negative) 01/27/22 Unknown Urine WBC (Auto) 2.0 /HPF (0.0-6.0) 01/27/22 Unknown Urine RBC (Auto) 15.0 /HPF (0.0-6.0) 01/27/22 Unknown Hyaline Casts 1 /LPF 01/27/22 Unknown Urine Mucus 3+ /HPF 01/27/22 Unknown Ayala/IV: Voiding Method Urinal Active Medications - Current Medications Current Medications: Generic Name Dose Route Start Last Admin Trade Name Freq PRN Reason Stop Dose Admin Acetaminophen 650 mg 01/27/22 04:24 Acetaminophen 325 Mg Tab PO Q4H PRN Pain MILD(1-3)/Fever >100.5/MONTAÑO Famotidine 20 mg 01/29/22 10:00 Famotidine 20 Mg/2 Ml Inj IV BID SAGAR Heparin Sodium (Porcine) 5,000 unit 01/27/22 06:00 01/29/22 05:01 Heparin 5,000 Unit/1 Ml Vial SUB-Q 5,000 unit Q8HR SAGAR Administration Hydralazine HCl 10 mg 01/29/22 09:50 Hydralazine 20 Mg/1 Ml Inj IV Q4HR PRN Hypertension Sodium Chloride 1,000 mls @ 150 mls/hr 01/27/22 04:30 01/29/22 04:54 Nacl 0.9% 1000 Ml IV 150 mls/hr DIRECT SAGAR Administration Magnesium Hydroxide 30 ml 01/27/22 04:24 Magnesium Hydroxide (Mom) Oral Liqd Udc PO Q4H PRN Constipation Morphine Sulfate 2 mg 01/27/22 04:24 Morphine 2 Mg/1 Ml Inj IV Q4H PRN Pain, Moderate (4-6) Morphine Sulfate 4 mg 01/27/22 04:24 Morphine 4 Mg/1 Ml Inj IV Q4H PRN Pain , Severe (7-10) Ondansetron HCl 4 mg 01/27/22 04:24 Ondansetron 4 Mg/2 Ml Inj IV Q8H PRN Nausea And Vomiting Sodium Chloride 10 ml 01/27/22 10:00 01/29/22 09:01 Sodium Chloride 0.9% 10 Ml Flush Syringe IV 10 ml BID SAGAR Administration Sodium Chloride 10 ml 01/27/22 04:24 Sodium Chloride 0.9% 10 Ml Flush Syringe IV PRN PRN LINE FLUSH Nutrition/Malnutrition Assess - Dietary Evaluation Nutrition/Malnutrition Findings: Nutrition Notes Start: 01/27/22 17:15 Freq: Status: Active Protocol: Document 01/27/22 17:15 BLANQUITA (Rec: 01/27/22 17:34 BLANQUITA [id number]) Nutrition Notes 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 Current Diet Clear Liquids Diet (from D ). Labs/Tests 01/27: Na 130, Cl 91.0, BUN 8, Crea 0.6. Pertinent Medications 01/27: Nutritionally unremarkable. Height 5 ft 8 in Weight 61.235 kg [place] Body Weight (kg) 70.00 BMI 20.5 Intake Prior to Admission Good Weight change and time frame Pt states having, unintentionally, loss between 14 and 23 lb recently. Weight Status Appropriate Subjective/Other Information RD consult for risk of malnutrition assessment. Pt has been on NPO, will advance to PO diet at dinner, will assess PO intake of meals at F/U. Pt is on Room Air, O2 saturation @ 99%, according to Physical Assessment History notes. Pt has missing teeth, according to Physical Assessment History notes. Pt shows no signs of concern for risk of malnutrition at the time, according to Physical Assessment History notes. Percent of energy/protein needs met: Prescribed Clear Liquids Diet provides for energy/protein needs (590 Kcal/16 g) during LOS. Burn Absent Trauma Absent GI Symptoms Nausea,Vomiting,Other Food Allergy No Skin Integrity/Comment Assessment WNL. 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 Is patient on ventilator? No Is Patient Ambulatory and/or Out of Bed Yes REE-([facility]-ambulatory/OOB) [ 1802.905 NUTR.[id number]] Calculation Used for Recommendations [facility] Additional Notes Protein: 0.8-1 g/Kg IBW; 56-70 g/day. Fluids: 1 ml/Kcal, or as per MD. Nutrition Intervention Change Diet Order: Start on Clear Liquids Diet, as tolerated, eventually, advance to Full Liquids Diet as tolerated. Goal #1 Adjust the dietary intervention to better serve Pt's needs and clinical conditions during LOS. Goal #2 Maintain body weight within +/ -3% of admission body weight during LOS. Follow-Up By: 01/30/22 Additional Comments Continue monitoring food tolerance, %PO intake of meals , and BM.
[2022-01-29] MEDS: FAMOTIDINE 20 MG/2 ML INJ IV SCH ×2 (10:22→22:16)
[2022-01-30] MEDS: SODIUM CHLORIDE 0.9% 1000 ML 1,000 ML IV SCH ×2 (04:04→09:59)
[2022-01-30 05:14] LABS: Blood Urea Nitrogen 6 mg/dL (9-20); Calcium 8.7 mg/dL (8.4-10.2); Hemolysis Index 5
[2022-01-30 05:16] LABS: BUN/Creatinine Ratio 10
[2022-01-30 05:42] VITALS: BP 147/78
[2022-01-30] MEDS: HEPARIN 5,000 UNIT/1 ML VIAL SUB-Q SCH ×2 (05:46→13:13)
--- NOTE | 2022-01-30 08:18 | Progress Note ---
Assessment and Plan Assessment and plan: 61-year-old -[place] male with no significant past medical history except for alcohol abuse presented to the emergency room complaining of abdominal pain. Labs significant for lipase level of 122. CT of the abdomen pelvis: reveals acute on chronic pancreatitis involving the distal pancreatic body and tail . No evidence of peripancreatic fluid collection or necrosis. Assessment and plan; Acute on chronic pancreatitis; Worsening lipase levels Change GI soft diet to clear liquids IV fluids and pain medications Trend lipase, GI consult Abdominal ultrasound Hypokalemia ; Potassium 3.3, replenished with 40 mEq p.o. KCl Monitor electrolytes EtOH abuse; Thiamine folic acid, closely monitor for any alcohol withdrawal symptoms CIWA protocol as needed Chronic alcohol use; Preventive counseling; +32 minutes Strongly advised to quit alcohol intake Counseled the importance of quitting alcohol Also advised alcohol rehabilitation Patient verbalized understanding DVT prophylaxis; Lovenox subcu DC planning per case management Advance care planning; +30 minutes Patient's diagnosed discussed, patient prognosis explained, patient's testing reports informed the patient Smoking cessation counseling done, counseled and advised to quit alcohol intake Additional 30 minutes We will closely monitor the patient and adjust management as needed Plan of care reviewed with the patient, his nurse and the case management 01/27/2022. Continue CIWA protocol and supportive care. Patient's diet will be advanced with clear liquids today and as tolerated. Continue IV fluid hydration and pain control 01/28/2022. Patient complains of still moderate abdominal pain with only slight improvement. However, patient is tolerating clear liquid diet.. We will recheck lipase levels. Advance diet as tolerated. Continue supportive measures with IV fluid hydration, antiemetic and pain control. Anticipate discharge later on today or in a.m. 01/29/2022; counseling done, trend lipase levels, check electrolytes Continue supportive care, possible discharge tomorrow if stable Hospitalist Physical - Constitutional Vitals: Temp Pulse Resp BP Pulse Ox 98.1 F 55 L 20 147/78 99 01/30/22 05:41 01/30/22 05:41 01/30/22 05:41 01/30/22 05:41 01/30/22 05:41 General appearance: Present: no acute distress, well-nourished Results - Labs CBC & Chem 7: 01/28/22 10:51 01/30/22 04:12 Labs: Laboratory Last Values WBC 2.4 K/mm3 (4.5-11.0) L 01/28/22 10:51 RBC 3.37 M/mm3 (3.65-5.03) L 01/28/22 10:51 Hgb 11.2 gm/dl (11.8-15.2) L 01/28/22 10:51 Hct 34.6 % (35.5-45.6) L 01/28/22 10:51 MCV 103 fl (84-94) H 01/28/22 10:51 MCH 33 pg (28-32) H 01/28/22 10:51 MCHC 32 % (32-34) 01/28/22 10:51 RDW 13.6 % (13.2-15.2) 01/28/22 10:51 Plt Count 84 K/mm3 (140-440) L 01/28/22 10:51 Lymph % (Auto) 38.3 % (13.4-35.0) H 01/28/22 10:51 [place] % (Auto) 14.5 % (0.0-7.3) H 01/28/22 10:51 Eos % (Auto) 2.5 % (0.0-4.3) 01/28/22 10:51 Baso % (Auto) 0.5 % (0.0-1.8) 01/28/22 10:51 Lymph # (Auto) 0.9 K/mm3 (1.2-5.4) L 01/28/22 10:51 [place] # (Auto) 0.4 K/mm3 (0.0-0.8) 01/28/22 10:51 Eos # (Auto) 0.1 K/mm3 (0.0-0.4) 01/28/22 10:51 Baso # (Auto) 0.0 K/mm3 (0.0-0.1) 01/28/22 10:51 Seg Neutrophils % 44.2 % (40.0-70.0) 01/28/22 10:51 Seg Neutrophils # 1.1 K/mm3 (1.8-7.7) L 01/28/22 10:51 Sodium 138 mmol/L (137-145) 01/30/22 04:12 Potassium 3.3 mmol/L (3.6-5.0) L 01/30/22 04:12 Chloride 101.7 mmol/L (98-107) 01/30/22 04:12 Carbon Dioxide 25 mmol/L (22-30) 01/30/22 04:12 Anion Gap 15 mmol/L 01/30/22 04:12 BUN 6 mg/dL (9-20) L 01/30/22 04:12 Creatinine 0.6 mg/dL (0.8-1.3) L 01/30/22 04:12 Estimated GFR > 60 ml/min 01/30/22 04:12 BUN/Creatinine Ratio 10 % 01/30/22 04:12 Glucose 95 mg/dL (75-100) 01/30/22 04:12 Calcium 8.7 mg/dL (8.4-10.2) 01/30/22 04:12 Phosphorus 3.60 mg/dL (2.5-4.5) 01/30/22 04:12 Magnesium 1.70 mg/dL (1.7-2.3) 01/30/22 04:12 Total Bilirubin 1.00 mg/dL (0.1-1.2) 01/27/22 00:59 AST 65 units/L (5-40) H 01/27/22 00:59 ALT 42 units/L (7-56) 01/27/22 00:59 Alkaline Phosphatase 104 units/L (35-129) 01/27/22 00:59 Total Protein 8.1 g/dL (6.3-8.2) 01/27/22 00:59 Albumin 4.4 g/dL (3.9-5) 01/27/22 00:59 Albumin/Globulin Ratio 1.2 % 01/27/22 00:59 Lipase 174 units/L (13-60) H 01/30/22 04:12 Urine Color Yellow (Yellow) 01/27/22 Unknown Urine Turbidity Clear (Clear) 01/27/22 Unknown Urine pH 5.0 (5.0-7.0) 01/27/22 Unknown Ur Specific [place] 1.026 (1.003-1.030) 01/27/22 Unknown Urine Protein 30 mg/dl mg/dL (Negative) 01/27/22 Unknown Urine Glucose (UA) Neg mg/dL (Negative) 01/27/22 Unknown Urine Ketones 20 mg/dL (Negative) 01/27/22 Unknown Urine Blood Mod (Negative) 01/27/22 Unknown Urine Nitrite Neg (Negative) 01/27/22 Unknown Urine Bilirubin Neg (Negative) 01/27/22 Unknown Urine Urobilinogen 2.0 mg/dL (<2.0) 01/27/22 Unknown Ur Leukocyte Esterase Neg (Negative) 01/27/22 Unknown Urine WBC (Auto) 2.0 /HPF (0.0-6.0) 01/27/22 Unknown Urine RBC (Auto) 15.0 /HPF (0.0-6.0) 01/27/22 Unknown Hyaline Casts 1 /LPF 01/27/22 Unknown Urine Mucus 3+ /HPF 01/27/22 Unknown Ayala/IV: Voiding Method Toilet Active Medications - Current Medications Current Medications: Generic Name Dose Route Start Last Admin Trade Name Freq PRN Reason Stop Dose Admin Acetaminophen 650 mg 01/27/22 04:24 Acetaminophen 325 Mg Tab PO Q4H PRN Pain MILD(1-3)/Fever >100.5/MONTAÑO Famotidine 20 mg 01/29/22 10:00 01/29/22 22:16 Famotidine 20 Mg/2 Ml Inj IV 20 mg BID SAGAR Administration Heparin Sodium (Porcine) 5,000 unit 01/27/22 06:00 01/30/22 05:46 Heparin 5,000 Unit/1 Ml Vial SUB-Q Not Given Q8HR SAGAR Hydralazine HCl 10 mg 01/29/22 09:50 Hydralazine 20 Mg/1 Ml Inj IV Q4HR PRN Hypertension Sodium Chloride 1,000 mls @ 150 mls/hr 01/27/22 04:30 01/30/22 04:04 Nacl 0.9% 1000 Ml IV 150 mls/hr DIRECT SAGAR Administration Magnesium Hydroxide 30 ml 01/27/22 04:24 Magnesium Hydroxide (Mom) Oral Liqd Udc PO Q4H PRN Constipation Morphine Sulfate 2 mg 01/27/22 04:24 Morphine 2 Mg/1 Ml Inj IV Q4H PRN Pain, Moderate (4-6) Morphine Sulfate 4 mg 01/27/22 04:24 Morphine 4 Mg/1 Ml Inj IV Q4H PRN Pain , Severe (7-10) Ondansetron HCl 4 mg 01/27/22 04:24 Ondansetron 4 Mg/2 Ml Inj IV Q8H PRN Nausea And Vomiting Potassium Chloride 40 meq 01/30/22 08:10 Potassium Chloride Er 20 Meq Tab PO 01/30/22 08:11 ONCE ONE Sodium Chloride 10 ml 01/27/22 10:00 01/29/22 22:16 Sodium Chloride 0.9% 10 Ml Flush Syringe IV 10 ml BID SAGAR Administration Sodium Chloride 10 ml 01/27/22 04:24 Sodium Chloride 0.9% 10 Ml Flush Syringe IV PRN PRN LINE FLUSH Nutrition/Malnutrition Assess - Dietary Evaluation Nutrition/Malnutrition Findings: Nutrition Notes Start: 01/27/22 17:15 Freq: Status: Active Protocol: Document 01/27/22 17:15 BLANQUITA (Rec: 01/27/22 17:34 BLANQUITA [id number]) Nutrition Notes 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 Current Diet Clear Liquids Diet (from D ). Labs/Tests 01/27: Na 130, Cl 91.0, BUN 8, Crea 0.6. Pertinent Medications 01/27: Nutritionally unremarkable. Height 5 ft 8 in Weight 61.235 kg [place] Body Weight (kg) 70.00 BMI 20.5 Intake Prior to Admission Good Weight change and time frame Pt states having, unintentionally, loss between 14 and 23 lb recently. Weight Status Appropriate Subjective/Other Information RD consult for risk of malnutrition assessment. Pt has been on NPO, will advance to PO diet at dinner, will assess PO intake of meals at F/U. Pt is on Room Air, O2 saturation @ 99%, according to Physical Assessment History notes. Pt has missing teeth, according to Physical Assessment History notes. Pt shows no signs of concern for risk of malnutrition at the time, according to Physical Assessment History notes. Percent of energy/protein needs met: Prescribed Clear Liquids Diet provides for energy/protein needs (590 Kcal/16 g) during LOS. Burn Absent Trauma Absent GI Symptoms Nausea,Vomiting,Other Food Allergy No Skin Integrity/Comment Assessment WNL. 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 Is patient on ventilator? No Is Patient Ambulatory and/or Out of Bed Yes REE-([facility]-ambulatory/OOB) [ [id number] [id number]] Calculation Used for Recommendations [facility] Additional Notes Protein: 0.8-1 g/Kg IBW; 56-70 g/day. Fluids: 1 ml/Kcal, or as per MD. Nutrition Intervention Change Diet Order: Start on Clear Liquids Diet, as tolerated, eventually, advance to Full Liquids Diet as tolerated. Goal #1 Adjust the dietary intervention to better serve Pt's needs and clinical conditions during LOS. Goal #2 Maintain body weight within +/ -3% of admission body weight during LOS. Follow-Up By: 01/30/22 Additional Comments Continue monitoring food tolerance, %PO intake of meals , and BM.
[2022-01-30] MEDS ORDERED: POTASSIUM CHLORIDE ER 20 MEQ TAB PO NR (08:30)
[2022-01-30] MEDS ORDERED: FAMOTIDINE 20 MG TAB PO SCH (10:00)
--- NOTE | 2022-01-30 10:59 | Gastroenterology Consultation ---
<SERA LACEY - Last Filed: 01/30/22 11:23> History of Present Illness - Reason for Consult Consult date: 01/30/22 pancreatitis - History of Present Illness Mr. Kruse is a 61 y/o M who denies any chronic medical issues, who presented to the ED with abdominal pain. Pt states that he began having stabbing stomach pain on Friday. Denies aggravating/alleviating factors. States that he took Aleve and "some other pain pills" on Friday, but did not get relief. Endorses non- bloody diarrhea since Friday. Denies N/V. Pt states that he has had x2 prior episode of pancreatitis (2019,2020). With previous episode pt reports having black diarrhea and "losing blood." Pt states that he consumes 4-5 24oz (8.4% alcohol) cans/day. Reports previous EGD/colon 2 years ago w/ "normal" finding. Endorses prior Hep C infection and successful treatment 10 years ago. Tolerating liquids and soft diet well. Lipase trend: 122, 154, 174. Past History Past Medical History: other (Pancreatitis) Past Surgical History: No surgical history Social history: alcohol abuse Family history: no significant family history Medications and Allergies Allergies Allergy/AdvReac Type Severity Reaction Status Date / Time No Known Allergies Allergy Verified 06/19/21 22:47 Home Medications Medication Instructions Recorded Confirmed Last Taken Type Ondansetron [Zofran Odt] 4 mg PO Q8HR PRN #14 tab.rapdis 06/20/21 01/27/22 Unknown Rx traMADoL [Ultram] 50 mg PO Q6HR PRN #14 tablet 06/20/21 01/27/22 Unknown Rx Active Meds: Active Medications Acetaminophen (Acetaminophen 325 Mg Tab) 650 mg PO Q4H PRN PRN Reason: Pain MILD(1-3)/Fever >100.5/[place] Famotidine (Famotidine 20 Mg Tab) 20 mg PO BID [facility] Last Admin: 01/30/22 09:29 Dose: 20 mg Heparin Sodium (Porcine) (Heparin 5,000 Unit/1 Ml Vial) 5,000 unit SUB-Q Q8HR [facility] Last Admin: 01/30/22 05:46 Dose: Not Given Hydralazine HCl (Hydralazine 20 Mg/1 Ml Inj) 10 mg IV Q4HR PRN PRN Reason: Hypertension Sodium Chloride (Nacl 0.9% 1000 Ml) 1,000 mls @ 150 mls/hr IV DIRECT [facility] Last Admin: 01/30/22 09:59 Dose: 150 mls/hr Magnesium Hydroxide (Magnesium Hydroxide (Mom) Oral Liqd Udc) 30 ml PO Q4H PRN PRN Reason: Constipation Morphine Sulfate (Morphine 2 Mg/1 Ml Inj) 2 mg IV Q4H PRN PRN Reason: Pain, Moderate (4-6) Morphine Sulfate (Morphine 4 Mg/1 Ml Inj) 4 mg IV Q4H PRN PRN Reason: Pain , Severe (7-10) Ondansetron HCl (Ondansetron 4 Mg/2 Ml Inj) 4 mg IV Q8H PRN PRN Reason: Nausea And Vomiting Potassium Chloride (Potassium Chloride Er 20 Meq Tab) 40 meq PO ONCE@0830 NR Stop: 01/30/22 12:00 Last Admin: 01/30/22 09:29 Dose: 40 meq Sodium Chloride (Sodium Chloride 0.9% 10 Ml Flush Syringe) 10 ml IV BID [facility] Last Admin: 01/30/22 09:29 Dose: 10 ml Sodium Chloride (Sodium Chloride 0.9% 10 Ml Flush Syringe) 10 ml IV PRN PRN PRN Reason: LINE FLUSH Review of Systems - Review of Systems All systems: negative (hx of pancreatitis) Exam - Constitutional Vital Signs: Temp Pulse Resp BP Pulse Ox 98.1 F 55 L 20 147/78 97 01/30/22 05:41 01/30/22 05:41 01/30/22 05:41 01/30/22 05:41 01/30/22 08:18 General appearance: no acute distress - EENT Eyes: PERRL, EOM intact ENT: hearing intact, clear oral mucosa, dentition normal - Neck Neck: supple, normal ROM - Respiratory Respiratory effort: normal - Cardiovascular Rhythm: regular Extremities: No edema - Gastrointestinal General gastrointestinal: Present: soft, non-tender, non-distended Rectal Exam: deferred - Integumentary Integumentary: Present: clear, dry - Neurologic Neurological: alert and oriented x3 - Psychiatric Psychiatric: appropriate mood/affect, intact judgment & insight, memory intact, cooperative - Labs CBC & Chem 7: 01/28/22 10:51 01/30/22 04:12 Lab Results: Laboratory Results - last 24 hr 01/30/22 04:12 Sodium 138 Potassium 3.3 L Chloride 101.7 Carbon Dioxide 25 Anion Gap 15 BUN 6 L Creatinine 0.6 L Estimated GFR > 60 BUN/Creatinine Ratio 10 Glucose 95 Calcium 8.7 Phosphorus 3.60 Magnesium 1.70 Lipase 174 H Assessment and Plan 1. acute on chronic pancreatitis - Check CBC/CMP - Start low fat diet - continue to control pain - continue IV fluids <CONSUELO WATSON - Last Filed: 01/30/22 14:03> Medications and Allergies Active Meds: Active Medications Acetaminophen (Acetaminophen 325 Mg Tab) 650 mg PO Q4H PRN PRN Reason: Pain MILD(1-3)/Fever >100.5/[place] Famotidine (Famotidine 20 Mg Tab) 20 mg PO BID [facility] Last Admin: 01/30/22 09:29 Dose: 20 mg Heparin Sodium (Porcine) (Heparin 5,000 Unit/1 Ml Vial) 5,000 unit SUB-Q Q8HR [facility] Last Admin: 01/30/22 13:13 Dose: 5,000 unit Hydralazine HCl (Hydralazine 20 Mg/1 Ml Inj) 10 mg IV Q4HR PRN PRN Reason: Hypertension Sodium Chloride (Nacl 0.9% 1000 Ml) 1,000 mls @ 150 mls/hr IV DIRECT [facility] Last Admin: 01/30/22 09:59 Dose: 150 mls/hr Magnesium Hydroxide (Magnesium Hydroxide (Mom) Oral Liqd Udc) 30 ml PO Q4H PRN PRN Reason: Constipation Morphine Sulfate (Morphine 2 Mg/1 Ml Inj) 2 mg IV Q4H PRN PRN Reason: Pain, Moderate (4-6) Morphine Sulfate (Morphine 4 Mg/1 Ml Inj) 4 mg IV Q4H PRN PRN Reason: Pain , Severe (7-10) Ondansetron HCl (Ondansetron 4 Mg/2 Ml Inj) 4 mg IV Q8H PRN PRN Reason: Nausea And Vomiting Sodium Chloride (Sodium Chloride 0.9% 10 Ml Flush Syringe) 10 ml IV BID [facility] Last Admin: 01/30/22 09:29 Dose: 10 ml Sodium Chloride (Sodium Chloride 0.9% 10 Ml Flush Syringe) 10 ml IV PRN PRN PRN Reason: LINE FLUSH Exam - Constitutional Vital Signs: Temp Pulse Resp BP Pulse Ox 98.1 F 55 L 20 147/78 97 01/30/22 05:41 01/30/22 05:41 01/30/22 05:41 01/30/22 05:41 01/30/22 08:18 - Labs CBC & Chem 7: 01/30/22 13:12 01/30/22 04:12 Lab Results: Laboratory Results - last 24 hr 01/30/22 01/30/22 04:12 13:12 WBC 2.9 L RBC 3.09 L Hgb 10.6 L Hct 31.5 L MCV 102 H MCH 34 H MCHC 34 RDW 13.6 Plt Count 109 L Lymph % (Auto) 42.8 H [place] % (Auto) 9.0 H Eos % (Auto) 2.1 Baso % (Auto) 0.7 Lymph # (Auto) 1.2 [place] # (Auto) 0.3 Eos # (Auto) 0.1 Baso # (Auto) 0.0 Seg Neutrophils % 45.4 Seg Neutrophils # 1.3 L Sodium 138 Potassium 3.3 L Chloride 101.7 Carbon Dioxide 25 Anion Gap 15 BUN 6 L Creatinine 0.6 L Estimated GFR > 60 BUN/Creatinine Ratio 10 Glucose 95 Calcium 8.7 Phosphorus 3.60 Magnesium 1.70 Lipase 174 H Assessment and Plan Patient seen and examined. CT scan reviewed. 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 Currently, he is asymp tomatic with no abdominal pain, nausea, or vomiting. His abdominal exam is soft and benign. CT scan shows chronic calcific pancreatitis with inflammation involving the tail and distal body. -Since patient's exam is benign, and he is tolerating p.o. well, I would discharge him to home. He has been instructed not to smoke or drink again. Gradually rising lipase is of unclear significance. -He has been advised to follow-up with us in the office in [address] Burns. We will sign off.
[2022-01-30 13:56] LABS: Basophils % (Auto) 0.7 % (0.0-1.8); Eosinophils # (Auto) 0.1 K/mm3 (0.0-0.4); Eosinophils % (Auto) 2.1 % (0.0-4.3); Hematocrit 31.5 % (35.5-45.6); Hemoglobin 10.6 gm/dl (11.8-15.2); Lymphocytes # (Auto) 1.2 K/mm3 (1.2-5.4); Lymphocytes % (Auto) 42.8 % (13.4-35.0); Mean Corpuscular HGB Conc 34 % (32-34); Mean Corpuscular Volume 102 fl (84-94); Monocytes # (Auto) 0.3 K/mm3 (0.0-0.8); Platelet Count 109 K/mm3 (140-440); Red Blood Count 3.09 M/mm3 (3.65-5.03); Red Cell Distribution Width 13.6 % (13.2-15.2)
[2022-01-30 14:12] LABS: Alanine Aminotransferase 34 units/L (7-56); Albumin 3.6 g/dL (3.9-5); Blood Urea Nitrogen 5 mg/dL (9-20); Hemolysis Index 6
[2022-01-30 14:22] LABS: BUN/Creatinine Ratio 7
--- NOTE | 2022-01-30 14:36 | Discharge Summary ---
Providers - Providers Date of Admission: 01/27/22 06:12 Date of discharge: 01/30/22 Attending physician: CHAY VILLAGOMEZ 01/30/22 08:12 Consult to Physician [CONS] Routine Comment: Consulting Provider: UMU SALVADOR Physician Instructions: Reason For Exam: Acute pancreatitis Primary care physician: TACO BIGGS Hospitalization Condition: Stable Hospital course: CT of the abdomen pelvis: reveals acute on chronic pancreatitis involving the distal pancreatic body and tail . No evidence of peripancreatic fluid collection or necrosis. Assessment and plan; Acute on chronic pancreatitis; Worsening lipase levels Change GI soft diet to clear liquids IV fluids and pain medications Trend lipase, GI consult Abdominal ultrasound Hypokalemia ; Potassium 3.3, replenished with 40 mEq p.o. KCl Monitor electrolytes EtOH abuse; Thiamine folic acid, closely monitor for any alcohol withdrawal symptoms [place] protocol as needed Chronic alcohol use; Preventive counseling; +32 minutes Strongly advised to quit alcohol intake Counseled the importance of quitting alcohol Also advised alcohol rehabilitation Patient verbalized understanding DVT prophylaxis; Lovenox subcu DC planning per case management Advance care planning; +30 minutes Patient's diagnosed discussed, patient prognosis explained, patient's testing reports informed the patient Smoking cessation counseling done, counseled and advised to quit alcohol intake Additional 30 minutes Disposition: 01 HOME / SELF CARE / HOMELESS Core Measure Documentation - Palliative Care Palliative Care/ Comfort Measures: Not Applicable - Core Measures Any of the following diagnoses?: none Exam - Constitutional Vitals: Temp Pulse Resp BP Pulse Ox 98.1 F 55 L 20 147/78 97 01/30/22 05:41 01/30/22 05:41 01/30/22 05:41 01/30/22 05:41 01/30/22 08:18 General appearance: Present: no acute distress, well-nourished - EENT Eyes: Present: PERRL, EOM intact - Neck Neck: Present: supple, normal ROM - Respiratory Respiratory effort: normal Respiratory: bilateral: diminished, negative: rales, rhonchi, wheezing - Cardiovascular Rhythm: regular Heart Sounds: Present: S1 & S2 - Extremities Extremities: no ischemia, No edema - Abdominal General gastrointestinal: Present: soft, non-tender, non-distended, normal bowel sounds - Integumentary Integumentary: Present: clear, warm - Musculoskeletal Musculoskeletal: strength equal bilaterally - Psychiatric Psychiatric: appropriate mood/affect, cooperative - Neurologic Neurologic: moves all extremities Plan Activity: advance as tolerated Diet: other (Mechanical soft diet advance as tolerated,) Special Instructions: smoking cessation Additional Instructions: Advised smoking cessation. Advised to quit alcohol intake. Advised to seek alcohol rehabilitation. If you have worsening symptoms contact MD or go to nearest emergency room as needed. Follow-up with primary care physician in 1 week GI in 1-2, Follow up with: TACO BIGGS MD [Primary Care Provider] - 3-5 Days CONSUELO WATSON MD [Staff Physician] - 6 Weeks Prescriptions: Folic Acid [Folvite] 1 mg PO QDAY #30 tablet Famotidine [Pepcid] 20 mg PO BID #60 tablet traMADoL [Ultram 50 MG tab] 50 mg PO Q6HR PRN #14 tablet PRN Reason: Pain Thiamine [Vitamin B-1] 100 mg PO QDAY #30 tablet Ondansetron [Zofran ODT TAB] 4 mg PO Q8HR PRN #14 tab.rapdis PRN Reason: Nausea And Vomiting
== END 2022-01-30 17:15 | disposition home or self-care (01) | DRG 440 ==
LOC: ED 16:39 → 3A 01-27 06:12
PROVIDERS: ADMIT Internal Medicine Geriatric Medicine; ATTEND Internal Medicine
DX: K85.80 Other acute pancreatitis without necrosis or infection (principal); F10.10 Alcohol abuse, uncomplicated; E87.6 Hypokalemia
CPT/HCPCS: 36415; 74177; 80048; 80053; 81001; 83690; 83735; 84100; 85025; 99406; G0378; J3490; J1644; J2270; J2405; J7030; Q9967